=== PATIENT | male | born 1985 | race African-American/Black ===

== ENCOUNTER 2016-08-13 09:09 | Emergency (ER) | payer SELFPAY ==
[~2016-08-13] VITALS: Ht 185.4 cm; Wt 100.0 kg
[~2016-08-13 09:09] MED LIST: OMEP20CA10 PO; ONDA4TAB5 PO
[2016-08-13 09:13] VITALS: BP 124/75
== END 2016-08-13 11:31 | disposition home or self-care (01) ==
LOC: ER 09:11
DX: M76.61 Achilles tendinitis, right leg (principal); F41.9 Anxiety disorder, unspecified; J45.909 Unspecified asthma, uncomplicated; F17.210 Nicotine dependence, cigarettes, uncomplicated; Z87.440 Personal history of urinary (tract) infections; Z79.899 Other long term (current) drug therapy
CPT/HCPCS: 99282

== ENCOUNTER 2017-05-11 06:38 | Emergency (ER) | payer SELFPAY ==
[~2017-05-11] VITALS: Ht 185.4 cm; Wt 105.0 kg
[2017-05-11 09:04] LABS: HEMATOCRIT. 43.2 % (42.0-52.0); MEAN CORPUSCULAR HEMOGLOBIN 27.7 pg (28.0-32.0); MEAN CORPUSCULAR VOLUME 85.3 fL (80.0-94.0); MEAN PLATELET VOLUME 9.3 fl (7.4-10.4); PLATELET 239 x1000/uL (130-400); RED BLOOD CELL COUNT 5.06 mill/uL (4.7-6.1); RED CELL DISTRIBUTION WIDTH 13.5 % (11.6-14.6)
[2017-05-11 09:08] LABS: CHLORIDE 104 mEq/L (98-107)
[2017-05-11 09:21] LABS: ETHANOL BLOOD < 10 mg/dL
[2017-05-11 09:29] LABS: PLATELET ESTIMATE NORMAL
[2017-05-11] MEDS ORDERED: KETOROLAC 30MG/ML VIAL IV ONE (09:30)
[2017-05-11] MEDS ORDERED: DEXAMETHASONE 10 MG/ML VIAL IV ONE (09:30)
[2017-05-11 10:15] LABS: CLARITY URINE CLEAR (CLEAR); COLOR URINE YELLOW (YELLOW); KETONES URINE NEGATIVE (NEGATIVE); LEUKOCYTE ESTERASE URINE NEGATIVE (NEGATIVE); NITRITE URINE NEGATIVE (NEGATIVE); OCCULT BLOOD URINE TRACE (NEGATIVE); PROTEIN URINE NEGATIVE (NEGATIVE); SPECIFIC GRAVITY URINE 1.024 (1.005-1.030)
[2017-05-11 11:00] VITALS: BP 131/61
[2017-05-11 11:09] LABS: *AMPHETAMINES SCREEN URINE NEGATIVE (NEGATIVE); *BARBITURATES SCREEN URINE NEGATIVE (NEGATIVE); *BENZODIAZEPINES SCREEN URINE NEGATIVE (NEGATIVE); *COCAINE SCREEN URINE NEGATIVE (NEGATIVE); CANNABINOID URINE SCREEN PRESUMTIVE POSITIVE (NEGATIVE); METHADONE URINE SCREEN NEGATIVE (NEGATIVE); OPIATES URINE SCREEN NEGATIVE (NEGATIVE); PHENCYCLIDINE URINE SCREEN NEGATIVE (NEGATIVE)
== END 2017-05-11 11:28 | disposition home or self-care (01) ==
LOC: ER 06:48
DX: J02.8 Acute pharyngitis due to other specified organisms (principal); B97.89 Other viral agents as the cause of diseases classified elsewhere; F41.9 Anxiety disorder, unspecified; J45.909 Unspecified asthma, uncomplicated; F12.90 Cannabis use, unspecified, uncomplicated
CPT/HCPCS: 36415; 80053; 80185; 80305; 81003; 82962; 85025; 87070; 87430; 96374; 96375; 99284; G0482; J1100; J1885; J7030; Z7610

== ENCOUNTER 2018-06-01 22:33 | Emergency (ER) | payer SELFPAY ==
[~2018-06-01] VITALS: Ht 185.4 cm; Wt 97.5 kg
[2018-06-02 03:32] VITALS: BP 152/74
== END 2018-06-02 03:33 | disposition home or self-care (01) ==
LOC: ER 22:33
DX: J03.90 Acute tonsillitis, unspecified (principal); F17.200 Nicotine dependence, unspecified, uncomplicated
CPT/HCPCS: 99283

== ENCOUNTER 2019-03-08 16:42 | Emergency (ER) | payer MEDICAID ==
[~2019-03-08] VITALS: Ht 185.4 cm; Wt 97.0 kg
[~2019-03-08 16:42] MED LIST changes: -OMEP20CA10 PO; +OMEP20CA5 PO
[2019-03-08] MEDS ORDERED: MORPHINE SULFATE 4 MG/ML CPJ (NOT FOR IM USE) IV STA (20:59)
[2019-03-08] MEDS ORDERED: SODIUM CHLORIDE 0.9% 1,000 ML IV ONE (20:59)
[2019-03-08] MEDS ORDERED: ONDANSETRON HCL 4MG/2ML INJ IV STA (20:59)
[2019-03-08 21:40] LABS: HEMATOCRIT. 50.4 % (42.0-52.0); HEMOGLOBIN. 16.9 g/dL (14.0-18.0); MEAN CORPUSCULAR HEMOGLOBIN 28.2 pg (28.0-32.0); MEAN PLATELET VOLUME 9.8 fl (7.4-10.4); PLATELET 317 x1000/uL (130-400); RED CELL DISTRIBUTION WIDTH 13.9 % (11.6-14.6)
[2019-03-08 21:46] LABS: CHLORIDE 103 mEq/L (98-107)
[2019-03-08 21:48] LABS: PROTHROMBIN TIME 10.7 sec (9.6-11.0)
[2019-03-08] MEDS: LORAZEPAM 2MG/ML CPJ IV ONE ×2 (22:00→22:25)
[2019-03-08 22:02] LABS: PLATELET ESTIMATE NORMAL
[2019-03-09 00:21] LABS: CLARITY URINE CLEAR (CLEAR); COLOR URINE YELLOW (YELLOW); KETONES URINE NEGATIVE (NEGATIVE); LEUKOCYTE ESTERASE URINE NEGATIVE (NEGATIVE); NITRITE URINE NEGATIVE (NEGATIVE); OCCULT BLOOD URINE 1+ (NEGATIVE); PROTEIN URINE TRACE (NEGATIVE); SPECIFIC GRAVITY URINE 1.032 (1.005-1.030); UROBILINOGEN URINE 0.2 E.U./dL (0.2-1.0)
[2019-03-09 00:57] VITALS: BP 145/85
== END 2019-03-09 01:11 | disposition home or self-care (01) ==
LOC: ER 16:42
DX: R10.9 Unspecified abdominal pain (principal); R11.2 Nausea with vomiting, unspecified; Z98.890 Other specified postprocedural states
CPT/HCPCS: 36415; 80053; 81003; 83690; 85025; 85610; 96361; 96374; 96375; 99283; J2270; J2405; J7030; Z7610; J2060